=== PATIENT | female | born 1995 | race Caucasian/White ===

== ENCOUNTER → 2021-12-14 07:32 | Outpatient (BNVA) | payer BC, SELFPAY | PROVIDERS: Visit Provider Nurse Practitioner Women's Health | DX: Z32.00 Encounter for pregnancy test, result unknown (principal) | CPT/HCPCS: 81025 ==

== ENCOUNTER → 2021-12-27 09:05 | Outpatient (BNVA) | payer BC, SELFPAY | PROVIDERS: Visit Provider Obstetrics & Gynecology | DX: R93.89 Abnormal findings on diagnostic imaging of other specified body structures (principal) | CPT/HCPCS: 84702 ==

== ENCOUNTER → 2021-12-31 15:45 | Outpatient (BNVA) | payer BC, SELFPAY | PROVIDERS: Visit Provider Obstetrics & Gynecology | DX: Z32.00 Encounter for pregnancy test, result unknown (principal) | CPT/HCPCS: 84702 ==

== ENCOUNTER → 2022-01-04 16:20 | Outpatient (BNVA) | payer BC, SELFPAY | PROVIDERS: Visit Provider Obstetrics & Gynecology | DX: Z34.90 Encounter for supervision of normal pregnancy, unspecified, unspecified trimester (principal) | CPT/HCPCS: 84702 ==

== ENCOUNTER → 2022-02-01 09:04 | Outpatient (BNVA) | payer BC, SELFPAY | PROVIDERS: Visit Provider Obstetrics & Gynecology | DX: O03.9 Complete or unspecified spontaneous abortion without complication (principal) | CPT/HCPCS: 76801 ==

== ENCOUNTER 2022-02-02 00:38 | Emergency (ER) | payer BC, SELFPAY ==
[2022-02-02] VITALS (9 sets, daily range): BP systolic 103–122; BP diastolic 45–68; PULSE 69–81; RESP 14–16; TEMP 36.7; O2SAT 95–100; BMI 26.6
--- NOTE | 2022-02-02 02:00 | ED_ITS ---
HPI - General: Chief complaint: Vaginal Bleeding Stated complaint: misscariage induction, cramps Time Seen by Provider: 02/02/22 01:47 Source: patient Mode of arrival: ambulatory Limitations: no limitations History of Present Illness: 26-year-old female states she took Cytotec today for blighted ovum states that tonight over the last 4 to 5 hours she been having heavy bleedings passing multiple clots. She states the bleeding has worsened and she is now starting to feel lightheaded she is hypotensive here and pale. She denies any pain denies any vomiting or diarrhea. Associated symptoms: Deny abdominal pain, headache(s), nausea or vomiting Review of Systems Const: Denies: fever(s), chills, body aches or change in appetite Eyes: Denies: blurry vision or eye discomfort ENMT: Denies: throat pain or dental pain Card: Denies: chest pain Resp: Denies: dyspnea GI: Denies: abdominal pain, nausea, vomiting or diarrhea : Reports: vaginal bleeding Musc: Denies: neck pain or back pain Skin/Breast: Denies: rash Neuro: Denies: headache(s) Psych: Denies: depression Tristan/Lymph: Denies: easy bruising All/Imm: Denies: urticaria PFSH ED PFSH: Medical History No pertinent past medical history neghx: htn,dm,thyroid,dvt/pe PCP: Lana Stewart [place] Pilonidal cyst (~11/2012) removal Surgical History Hx of wisdom tooth extraction (~03/2018) Family History Grandfather Colon cancer Maternal--dx age 50-60's Mother Heart disease Hypertension Father Hypercholesteremia Brother Hypercholesteremia Denies family history of Ovarian cancer Diabetes Breast cancer Uterine cancer Thyroid disease Stroke Physical Exam Const: COMMON NORMALS: patient oriented x3 GENERAL APPEARANCE: ill appearing HENMT: COMMON NORMALS: normocephalic and atraumatic HEAD & SCALP: nor mocephalic and atraumatic Eye: COMMON NORMALS: Equal, round and reactive pupils present and EOMs intact bilaterally PUPIL: Yes Equal, round and reactive pupils present Neck/C-Spine: COMMON NORMALS: full ROM and supple Chest: COMMONS NORMALS: normal inspection of the chest and normal palpation of entire chest wall Resp: COMMON NORMALS: normal respiratory effort, No retractions, No use of accessory muscles and clear to auscultation bilaterally AUSCULTATION: clear to auscultation bilaterally Cardio: COMMON NORMALS: regular rate, regular rhythm and No murmurs present (Cardio) RATE: regular rate RHYTHM: regular rhythm GI: COMMON NORMALS: Normal to inspection, nondistended, normoactive bowel sounds present, Soft to palpation, non-tender and no masses PALPATION: Yes Soft to palpation : OTHER: Clots and bleeding in the vaginal vault gestational sac was stuck in the cervix I was able to remove it from the cervix and her bleeding is since slowed Extremity: COMMON NORMALS: normal to inspection and full ROM Neuro: COMMON NORMALS: patient oriented x3, moves all extremities and no focal motor deficits Psych: COMMON NORMALS: mental status grossly normal, Normal thought process present and cooperative THOUGHT PROCESS: Normal thought process present Skin: COMMON NORMALS: no rashes or lesions noted and no wounds GENERAL SKIN EXAM: no rashes or lesions noted Course Vital Signs: Vital signs: Vital Signs Temperature 98.0 F 02/02/22 00:45 Pulse Rate 75 02/02/22 03:16 Respiratory Rate 16 02/02/22 03:16 Blood Pressure 111/61 02/02/22 03:16 Pulse Oximetry 99 02/02/22 03:16 Oxygen Delivery Me thod 02/02/22 00:45 MDM - OB/Uterine Contractions Medical Decision Making Patient presents for vaginal bleeding from a miscarriage I was able to remove the gestational sacs which was stuck in her cervix her bleeding is since slowed greatly she is well-appearing here her vital signs are normal she is stable for discharge she is to follow-up with OB and return if worsening she understands agrees to plan. Lab Data 02/02/22 02:23 02/02/22 02:23 Laboratory Results WBC 13.3 10^3/uL (4.0-10.0) H 02/02/22 02:23 RBC 3.71 10^6/uL (4.1-5.3) L 02/02/22 02:23 Hgb 11.3 g/dL (11.5-15.3) L 02/02/22 02:23 Hct 33.6 % (37.0-47.0) L 02/02/22 02:23 MCV 90.6 fl (81-99) 02/02/22 02:23 MCH 30.5 pg (28.0-34.0) 02/02/22 02:23 MCHC 33.6 g/dL (30.0-36.0) 02/02/22 02: RDW 11.3 % (12.1-15.1) L 02/02/22 02:23 Plt Count 188 10^3/cmm (130-400) 02/02/22 02:23 MPV 9.6 fL (7.4-10.4) 02/02/22 02:23 Neut % (Auto) 79.4 % 02/02/22 02:23 Lymph % (Auto) 16.1 % 02/02/22 02:23 [place] % (Auto) 3.7 % 02/02/22 02: Eos % (Auto) 0.2 % 02/02/22 02:23 Baso % (Auto) 0.2 % 02/02/22 02:23 Neut # (Auto) 10.52 10^3/uL (1.8-7.7) H 02/02/22 02: Lymph # (Auto) 2.1 10^3/uL (0.8-4.8) 02/02/22 02:23 [place] # (Auto) 0.5 10^3/uL (0.2-0.9) 02/02/22 02:23 Eos # (Auto) 0.0 10^3/uL (0.0-0.8) 02/02/22 02:23 Baso # (Auto) 0.0 10^3/uL (0.0-0.1) 02/02/22 02: Nucleated RBC % (auto) 0 % 02/02/22 02: Nucleated RBCs # 0.0 /100WBC 02/02/22 02:23 Sodium 136 mmol/L (136-145) 02/02/22 02:23 Potassium 4.0 mmol/L (3.5-5.1) 02/02/22 02: Chloride 106 mmol/L (98-107) 02/02/22 02:23 Carbon Dioxide 19 mmol/L (22-29) L 02/02/22 02:23 Anion Gap 15.0 (5-19) 02/02/22 02:23 BUN 9 mg/dL (6-20) 02/02/22 02:23 Creatinine 0.6 mg/dL (0.5-0.9) 02/02/22 02:23 GFR Calculation 119.9 mL/min (90-130) 02/02/22 02:23 Glucose 111 mg/dL (65-115) 02/02/22 02:23 Calculated Osmolality 281 mOsm/kg (285-295) L 02/02/22 02:23 Calcium 8.1 mg/dL (8.5-10.5) L 02/02/22 02:23 Total Bilirubin 0.2 mg/dL (0.15-1.2) 02/02/22 02:23 AST 15 U/L (0-32) 02/02/22 02:23 ALT 10 U/L (0-33) 02/02/22 02:23 Alkaline Phosphatase 50 U/L (35-105) 02/02/22 02:23 Total Protein 5.9 g/dL (6.6-8.7) L 02/02/22 02:23 Albumin 3.5 g/dL (3.5-5.2) 02/02/22 02:23 Globulin 2.4 g/dL (1.3-4.6) 02/02/22 02:23 Ser , Semi-Qnt 1400.00 mIU/mL 02/02/22 02:23 Discharge Plan Discharge Patient Disposition: Home Clinical Impression: Miscarriage Condition: Stable Prescriptions: No Action Adult 50 Plus Probiotic 4 billion cell capsule PO prenat.vits,afsaneh,[id number]-hbill Tablet 1 tab PO DAILY povidone-iodine [Betadine Swabsticks] 10 % swab 1 applic topical ONCE Qty: 150 0RF biotin 1 mg capsule 1 mg PO DAILY misoprostol [Cytotec] 200 mcg tablet 600 mcg PO Q6H Qty: 12 0RF promethazine 25 mg tablet 25 mg PO Q6H PRN (Reason: nausea and vomiting) Qty: 30 0RF ibuprofen 600 mg tablet 600 mg PO Q6H PRN (Reason: pain) Qty: 30 0RF misoprostol [Cytotec] 200 mcg tablet 600 mcg PO Q6H Qty: 12 0RF Discharge Orders: Discharge ED (Routine); Ordered 02/02/22 Ordered By: Ivory Thibodeaux Referrals: Oumou Ott MD [Physician] - 1-3 days Discharge Diet: Advance as tolerated Discharge Activity: Resume usual activity Patient Instructions: Miscarriage (ED) Coding Level of Care Code ED Security Systems Installer for Chg Fwd Exam Comprehensive
[2022-02-02] MEDS: sodium chloride 0.9% 1,000 ML 999 ML IV ×2 (02:05→04:17)
[2022-02-02 02:31] LABS: Basophils % 0.2 %; Eosinophils % 0.2 %; Hematocrit 33.6 % (37.0-47.0); Hemoglobin 11.3 g/dL (11.5-15.3); Lymphocytes # 2.1 10^3/uL (0.8-4.8); Lymphocytes % 16.1 %; Mean Corpuscular HGB Conc 33.6 g/dL (30.0-36.0); Mean Corpuscular Hemoglobin 30.5 pg (28.0-34.0); Mean Corpuscular Volume 90.6 fl (81-99); Mean Platelet Volume 9.6 fL (7.4-10.4); Monocytes # 0.5 10^3/uL (0.2-0.9); Monocytes % 3.7 %; Neutrophils # 10.52 10^3/uL (1.8-7.7); Neutrophils % 79.4 %; Nucleated Red Blood Cells % 0 %; Platelet Count 188 10^3/cmm (130-400); Red Blood Count 3.71 10^6/uL (4.1-5.3); Red Cell Distribution Width 11.3 % (12.1-15.1); White Blood Count 13.3 10^3/uL (4.0-10.0)
[2022-02-02 02:58] LABS: Alanine Aminotransferase 10 U/L (0-33); Albumin Level 3.5 g/dL (3.5-5.2); Alkaline Phosphatase 50 U/L (35-105); Aspartate Amino Transferase 15 U/L (0-32); Blood Urea Nitrogen 9 mg/dL (6-20); Calcium 8.1 mg/dL (8.5-10.5); Carbon Dioxide 19 mmol/L (22-29); Chloride 106 mmol/L (98-107); Globulin 2.4 g/dL (1.3-4.6); Glomerular Filtration Rate 119.9 mL/min (90-130); Glucose 111 mg/dL (65-115); Osmolality Calculated 281 mOsm/kg (285-295); Sodium 136 mmol/L (136-145); Total Bilirubin 0.2 mg/dL (0.15-1.2); Total Protein 5.9 g/dL (6.6-8.7)
--- NOTE | 2022-02-02 04:00 | PC.NURSE ---
pt was d/c, IV removed, pt stated she felt dizzy and weak, pt placed into wheelchair to be taken to exit. When entering waiting room pt states she needed to use the restroom before she leaves. Pt stood from wheelchair and began to feel dizzy, pt became weak and I lowered pt to wheelchair. Pt was not responsive to verbal stimuli and had eyes closed. Pt taken back into ED 11.
[2022-02-02 04:18] LABS: Hematocrit 35.2 % (37.0-47.0); Hemoglobin 11.8 g/dL (11.5-15.3)
--- NOTE | 2022-02-02 05:30 | PC.NURSE ---
Pt was able to ambulate to bathroom, change brief, and ambulate back to room. Pt d/c, ambulated to exit
== END 2022-02-02 05:33 | disposition home or self-care (01) ==
PROVIDERS: Emergency Provider Emergency Medicine
DX: O03.9 Complete or unspecified spontaneous abortion without complication (principal)
CPT/HCPCS: 80053; 84702; 85014; 85018; 85025; 86850; 86900; 96360; 96361; 99284; J7030

== ENCOUNTER 2022-03-04 16:42 | Outpatient (CLI) | payer OTHER, BC, SELFPAY ==
--- NOTE | 2022-03-04 17:46 | XR_ITS ---
WS: [id number] XR knee RT 1-2V [id number] REASON FOR EXAM: PAIN IN RIGHT KNEE FINDINGS: The joint spaces of the right knee are intact and well preserved. No fracture or focal bone lesion is identified. No soft tissue abnormality is noted. XR/XR knee RT 1-2V [id number] IMPRESSION: No significant abnormality.
== END 2022-03-04 16:43 | disposition home or self-care (01) ==
PROVIDERS: PCP Nurse Practitioner Family; Visit Provider Nurse Practitioner Family
DX: M25.561 Pain in right knee (principal)
CPT/HCPCS: 73560

== ENCOUNTER → 2022-04-08 16:02 | Outpatient (BNVA) | payer OTHER, BC, SELFPAY | PROVIDERS: PCP Nurse Practitioner Family; Visit Provider Specialist | DX: S89.91XA Unspecified injury of right lower leg, initial encounter (principal); W19.XXXA Unspecified fall, initial encounter | CPT/HCPCS: 73560; 73565 ==

== ENCOUNTER 2022-05-08 07:34 | Outpatient (CLI) | payer OTHER, BC, SELFPAY ==
--- NOTE | 2022-05-08 08:00 | MR_ITS ---
WS: [id number] MRI RIGHT KNEE NONCONTRAST TECHNIQUE: Axial PD, coronal PD fat sat, coronal PD, sagittal PD, and sagittal PD fat-sat images obta ined. CLINICAL INFORMATION: right knee injury, right knee pain, positive Patricia's COMPARISON: None. FINDINGS: Distal quadriceps and patella tendons are intact. Normal ACL and PCL. Chronic intrasubstance signal a bnormality involving the posterior horn medial meniscus. Tiny adjacent vertically oriented meniscal t ear extending to the tibial articular surface. Normal lateral meniscus. Fibular head is normal. Medial and lateral patellar retinaculum are intact. Mild chondromalacia patella. Normal popliteal fos sa. Normal MCL and LCL. Popliteus appears intact. Small amount of patella tendon tendinopathy with ed umm in the inferior pole patella. MR/MR knee RT wo con* [id number] IMPRESSION: 1. Normal ACL and PCL. 2. No significant joint effusion. 3. Chronic intrasubstance signal abnormality involving the posterior horn medi al meniscus. Tiny vertically oriented tear posterior horn medial meniscus exten ding to the articular surface inferiorly. 4. Normal lateral meniscus. 5. Mild chondromalacia patella. 6. Small amount of patella tendon tendinopathy with edema in the inferior pole patella. Outbridge grading: grade II: blister-like swelling/fraying of articular cartila ge extending to surface
== END 2022-05-08 07:35 | disposition home or self-care (01) ==
LOC: RAD 07:38
PROVIDERS: PCP Nurse Practitioner Family; Visit Provider Specialist
DX: S83.241A Other tear of medial meniscus, current injury, right knee, initial encounter (principal); X58.XXXA Exposure to other specified factors, initial encounter
CPT/HCPCS: 73721

== ENCOUNTER → 2022-05-09 14:00 | Outpatient (BNVA) | payer BC, OTHER, SELFPAY | PROVIDERS: PCP Nurse Practitioner Family; Visit Provider Obstetrics & Gynecology | DX: N93.9 Abnormal uterine and vaginal bleeding, unspecified (principal); Z32.00 Encounter for pregnancy test, result unknown | CPT/HCPCS: 83036; 83525; 84443; 84702 ==

== ENCOUNTER → 2022-05-13 16:18 | Outpatient (BNVA) | payer BC, OTHER, SELFPAY | PROVIDERS: PCP Nurse Practitioner Family | DX: Z34.90 Encounter for supervision of normal pregnancy, unspecified, unspecified trimester (principal); N93.9 Abnormal uterine and vaginal bleeding, unspecified | CPT/HCPCS: 84702 ==

== ENCOUNTER → 2022-05-20 15:34 | Outpatient (BNVA) | payer BC, OTHER, SELFPAY | PROVIDERS: PCP Nurse Practitioner Family; Visit Provider Obstetrics & Gynecology | DX: O03.9 Complete or unspecified spontaneous abortion without complication (principal); Z3A.00 Weeks of gestation of pregnancy not specified | CPT/HCPCS: 76830 ==

== ENCOUNTER 2022-05-31 09:10 | Outpatient (CLI) | payer BC, SELFPAY ==
[2022-06-03 19:25] LABS: PTT-LA-Screen 32 sec (< OR = 40)
[2022-06-04 10:15] LABS: Anti-Nuclear Antibody Pattern Nuclear, Speckled; Anti-Nuclear Antibody Screen POSITIVE (NEGATIVE)
[2022-06-04 18:14] LABS: Insulin ( Reference Lab Test) 6.3 uIU/mL
[2022-06-05 01:19] LABS: CARDIOLIPIN AB (IGA) <2.0 APL-U/mL; CARDIOLIPIN AB (IGG) <2.0 GPL-U/mL; CARDIOLIPIN AB (IGM) <2.0 MPL-U/mL
[2022-06-05 17:58] LABS: Factor 5 Leiden Mutation NEGATIVE
[2022-06-07 20:30] LABS: Beta 2 Glycoprotein IGA <2.0 U/mL (<20.0); Beta 2 Glycoprotein IGG <2.0 U/mL (<20.0); Beta 2 Glycoprotein IGM 2.4 U/mL (<20.0)
== END 2022-05-31 09:11 | disposition home or self-care (01) ==
PROVIDERS: PCP Nurse Practitioner Family; Visit Provider Obstetrics & Gynecology
DX: D89.89 Other specified disorders involving the immune mechanism, not elsewhere classified (principal); O20.0 Threatened abortion
CPT/HCPCS: 36415; 81241; 83525; 84702; 85613; 85730; 86038; 86146; 86147

== ENCOUNTER 2022-06-17 16:13 | Outpatient (CLI) | payer BC, SELFPAY ==
[2022-06-19 11:55] LABS: COMPLEMENT COMPONENT C3C 115 mg/dL (83-193); COMPLEMENT COMPONENT C4C 21 mg/dL (15-57)
[2022-06-19 13:30] LABS: COMPLEMENT, TOTAL (CH50) >60 U/mL (31-60)
[2022-06-19 16:03] LABS: CENTROMERE B ANTIBODY <1.0 NEG AI (<1.0 NEG); JO-1 ANTIBODY <1.0 NEG AI (<1.0 NEG); RNP ANTIBODY <1.0 NEG AI (<1.0 NEG); SCL-70 ANTIBODY <1.0 NEG AI (<1.0 NEG); SJOGREN'S ANTIBODY (SS-A) <1.0 NEG AI (<1.0 NEG); SM ANTIBODY <1.0 NEG AI (<1.0 NEG); SS-B <1.0 NEG AI (<1.0 NEG)
[2022-06-19 16:29] LABS: THYROID PEROXIDASE ANTIBODIES 2 IU/mL (<9)
[2022-06-20 10:39] LABS: ANA PATTERN Nuclear, Speckled; ANA SCREEN, IFA POSITIVE (NEGATIVE); ANA TITER 1:40 titer
[2022-06-21 15:26] LABS: DNA AB (DS) CRITHIDIA,IFA NEGATIVE (NEGATIVE)
== END 2022-06-17 16:14 | disposition home or self-care (01) ==
LOC: LAB 16:18
PROVIDERS: PCP Nurse Practitioner Family; Visit Provider Obstetrics & Gynecology
DX: D89.89 Other specified disorders involving the immune mechanism, not elsewhere classified (principal)
CPT/HCPCS: 86160; 86162; 86235; 86255; 86376

== ENCOUNTER → 2022-07-10 13:22 | Outpatient (BNVA) | payer BC, SELFPAY | PROVIDERS: PCP Nurse Practitioner Family; Visit Provider Obstetrics & Gynecology | DX: N39.0 Urinary tract infection, site not specified (principal) | CPT/HCPCS: 84315; 87077; 87086; 87184 ==

== ENCOUNTER → 2022-09-11 15:00 | Outpatient (BNVA) | payer BC, SELFPAY | PROVIDERS: PCP Nurse Practitioner Family; Visit Provider Obstetrics & Gynecology | DX: N96 Recurrent pregnancy loss (principal) | CPT/HCPCS: 84702 ==

== ENCOUNTER → 2022-09-13 08:14 | Outpatient (BNVA) | payer BC, SELFPAY | PROVIDERS: PCP Nurse Practitioner Family; Visit Provider Obstetrics & Gynecology | DX: N96 Recurrent pregnancy loss (principal) | CPT/HCPCS: 84702 ==

== ENCOUNTER → 2022-09-19 09:47 | Outpatient (BNVA) | payer BC, SELFPAY | PROVIDERS: PCP Nurse Practitioner Family; Visit Provider Internal Medicine Rheumatology | DX: R76.8 Other specified abnormal immunological findings in serum (principal); N96 Recurrent pregnancy loss; M25.50 Pain in unspecified joint | CPT/HCPCS: 36415; 83520; 85613; 85730; 86200; 86431 ==

== ENCOUNTER → 2022-09-23 10:20 | Outpatient (BNVA) | payer BC, SELFPAY | PROVIDERS: PCP Nurse Practitioner Family; Visit Provider Obstetrics & Gynecology | DX: Z36.87 Encounter for antenatal screening for uncertain dates (principal) | CPT/HCPCS: 76817 ==

== ENCOUNTER → 2022-10-14 13:29 | Outpatient (BNVA) | payer BC, SELFPAY | PROVIDERS: PCP Nurse Practitioner Family; Visit Provider Obstetrics & Gynecology | DX: Z36.87 Encounter for antenatal screening for uncertain dates (principal) | CPT/HCPCS: 76801 ==

== ENCOUNTER → 2022-11-04 10:41 | Outpatient (BNVA) | payer BC, SELFPAY | PROVIDERS: PCP Nurse Practitioner Family; Visit Provider Obstetrics & Gynecology | DX: Z34.90 Encounter for supervision of normal pregnancy, unspecified, unspecified trimester (principal) | CPT/HCPCS: 80307; 84315; 85027; 86592; 86762; 86803; 86850; 86900; 87086; 87340; 87491; 87591; 87806 ==

== ENCOUNTER → 2022-11-18 08:39 | Outpatient (BNVA) | payer BC, SELFPAY | PROVIDERS: PCP Nurse Practitioner Family; Visit Provider Obstetrics & Gynecology | DX: Z34.90 Encounter for supervision of normal pregnancy, unspecified, unspecified trimester (principal) | CPT/HCPCS: 76815 ==

== ENCOUNTER → 2022-11-28 09:00 | Outpatient (BNVA) | payer BC, SELFPAY | PROVIDERS: PCP Nurse Practitioner Family; Visit Provider Nurse Practitioner Women's Health | DX: Z34.90 Encounter for supervision of normal pregnancy, unspecified, unspecified trimester (principal); Z36.9 Encounter for antenatal screening, unspecified | CPT/HCPCS: 82105; 88175 ==

== ENCOUNTER → 2022-12-30 09:44 | Outpatient (BNVA) | payer BC, SELFPAY | PROVIDERS: PCP Nurse Practitioner Family; Visit Provider Obstetrics & Gynecology | DX: Z34.90 Encounter for supervision of normal pregnancy, unspecified, unspecified trimester (principal) | CPT/HCPCS: 76805 ==

== ENCOUNTER → 2023-01-27 10:56 | Outpatient (BNVA) | payer BC, SELFPAY | PROVIDERS: PCP Nurse Practitioner Family; Visit Provider Obstetrics & Gynecology | DX: O09.899 Supervision of other high risk pregnancies, unspecified trimester (principal); Z3A.24 24 weeks gestation of pregnancy | CPT/HCPCS: 82950; 84315 ==

== ENCOUNTER → 2023-03-13 09:28 | Outpatient (BNVA) | payer BC, SELFPAY | PROVIDERS: PCP Nurse Practitioner Family; Visit Provider Obstetrics & Gynecology | DX: O09.899 Supervision of other high risk pregnancies, unspecified trimester; Z3A.30 30 weeks gestation of pregnancy | CPT/HCPCS: 84315; 85025 ==

== ENCOUNTER 2023-04-09 08:44 | Outpatient (CLI) | payer BC, SELFPAY ==
[2023-04-09] VITALS (9 sets, daily range): BP systolic 127–135; BP diastolic 66–76; PULSE 82–93; RESP 16–18; TEMP 35.1–36.9; BMI 34.3
[2023-04-09 09:44] LABS: Add Urine Microscopic? NO; Charge for UA Resulting for Rev
[2023-04-09 09:45] LABS: Basophils % 0.2 %; Eosinophils # 0.1 10^3/uL (0.0-0.8); Eosinophils % 0.8 %; Hematocrit 36.1 % (36-47); Lymphocytes # 2.4 10^3/uL (0.8-4.8); Lymphocytes % 22.6 %; Mean Corpuscular HGB Conc 34.6 g/dL (30-55); Mean Corpuscular Volume 89.6 fl (85-98); Mean Platelet Volume 9.6 fL (7.4-10.4); Monocytes # 0.6 10^3/uL (0.2-0.9); Monocytes % 5.9 %; Neutrophils # 7.24 10^3/uL (1.8-7.7); Neutrophils % 69.4 %; Nucleated Red Blood Cells % 0 %; Platelet Count 190 10^3/cmm (157-399); Red Blood Count 4.03 10^6/uL (3.85-5.65); Red Cell Distribution Width 12.6 % (12.1-15.1); White Blood Count 10.42 10^3/uL (3.29-11.43)
[2023-04-09] MEDS: NIFEdipine 10 mg Capsule PO (09:46)
[2023-04-09 09:59] LABS: Bilirubin Urine Neg (Negative); Blood Urine Neg (Negative); Glucose Urine UA Norm (Normal); Ketones Urine Negative (Negative); Leukocyte Esterase Urine Negative (Negative); Nitrate Urine Negative (Negative); Protein Urine Neg (Negative); Urine Appearance Clear (CLEAR); Urine Color Yellow (Yellow); Urobilinogen Urine Norm (Negative); pH Urine 7 (5-7)
[2023-04-09 10:14] LABS: Alanine Aminotransferase 22 U/L (0-33); Albumin Level 3.2 g/dL (3.5-5.2); Alkaline Phosphatase 120 U/L (35-105); Anion Gap 13.9 (5-19); Aspartate Amino Transferase 21 U/L (0-32); Blood Urea Nitrogen 9 mg/dL (6-20); Calcium 8.3 mg/dL (8.5-10.5); Carbon Dioxide 20 mmol/L (22-29); Chloride 107 mmol/L (98-107); Globulin 2.6 g/dL (1.3-4.6); Glomerular Filtration Rate 146.9 mL/min (90-130); Glucose 87 mg/dL (65-115); Osmolality Calculated 282 mOsm/kg (285-295); Potassium 3.9 mmol/L (3.5-5.1); Sodium 137 mmol/L (136-145); Total Bilirubin 0.2 mg/dL (0.15-1.2); Total Protein 5.8 g/dL (6.6-8.7); Uric Acid 3.5 mg/dL (2.4-5.7)
[2023-04-09 10:16] LABS: Urine Creatinine 21 mg/dL (28-217); Urine Protein Random 4 mg/dL
[2023-04-09 10:18] LABS: UPRO/UCREAT Ratio 0.19 mg/mg CR
== END 2023-04-09 11:06 | disposition home or self-care (01) ==
LOC: OPOB 08:48 → OBGYN 08:51
PROVIDERS: PCP Nurse Practitioner Family; Visit Provider Obstetrics & Gynecology
DX: O16.9 Unspecified maternal hypertension, unspecified trimester (principal); Z3A.00 Weeks of gestation of pregnancy not specified
CPT/HCPCS: 36415; 59025; 80053; 81003; 82570; 84156; 84550; 85025; 99211

== ENCOUNTER → 2023-04-21 08:08 | Outpatient (BNVA) | payer BC, SELFPAY | PROVIDERS: PCP Nurse Practitioner Family; Visit Provider Obstetrics & Gynecology | DX: O09.899 Supervision of other high risk pregnancies, unspecified trimester (principal) | CPT/HCPCS: 84315; 87081 ==

== ENCOUNTER 2023-05-01 08:40 | Outpatient (CLI) | payer BC, SELFPAY ==
[2023-05-01 08:57] VITALS: BP 161/83; PULSE 93
[2023-05-01 09:16] VITALS: BP 139/79; PULSE 85
[2023-05-01 09:22] LABS: Nitrazine Paper, PH Negative
[2023-05-01 09:26] VITALS: BP 139/79; PULSE 85; RESP 16
== END 2023-05-01 09:27 | disposition home or self-care (01) ==
LOC: OPOB 08:44 → OBGYN 08:45
PROVIDERS: Absent Provider Obstetrics & Gynecology; PCP Nurse Practitioner Family; Visit Provider Obstetrics & Gynecology
DX: O26.899 Other specified pregnancy related conditions, unspecified trimester (principal); Z3A.00 Weeks of gestation of pregnancy not specified; N89.8 Other specified noninflammatory disorders of vagina
CPT/HCPCS: 59025; 83986; 99211

== ENCOUNTER 2023-05-20 15:03 | Inpatient (IN) | payer BC, SELFPAY ==
[2023-05-20] VITALS (13 sets, daily range): BP systolic 134–148; BP diastolic 70–92; PULSE 71–98; TEMP 35.7–36.3; BMI 36.3
[2023-05-20 15:31] LABS: Basophils % 0.2 %; Eosinophils # 0.1 10^3/uL (0.0-0.8); Hematocrit 37.1 % (36-47); Lymphocytes # 2.4 10^3/uL (0.8-4.8); Lymphocytes % 24.2 %; Mean Corpuscular Hemoglobin 30.7 pg (27-33); Mean Corpuscular Volume 87.7 fl (85-98); Mean Platelet Volume 10.3 fL (7.4-10.4); Monocytes # 0.6 10^3/uL (0.2-0.9); Monocytes % 5.7 %; Neutrophils # 6.75 10^3/uL (1.8-7.7); Neutrophils % 68.1 %; Nucleated Red Blood Cells % 0 %; Platelet Count 193 10^3/cmm (157-399); Red Blood Count 4.23 10^6/uL (3.85-5.65); Red Cell Distribution Width 12.1 % (12.1-15.1); White Blood Count 9.91 10^3/uL (3.29-11.43)
[2023-05-20] MEDS: miSOPROStol 100 mcg tablet 25 MCG VAGINAL ×2 (15:48→21:07)
--- NOTE | 2023-05-20 17:17 | PM.OPHPUD ---
Labor & Delivery H&P Update Date of Procedure: May 20, 2023 Date H&P Performed: 05/19/23 H&P update information: I have reviewed H&P completed within last 30 days, I have examined patient prior to procedure and No changes to prior documentation Admission Diagnosis:
[2023-05-21] VITALS (80 sets, daily range): BP systolic 118–184; BP diastolic 58–98; PULSE 59–110; RESP 17–18; TEMP 36–36.6; O2SAT 96–97
[2023-05-21] MEDS: miSOPROStol 100 mcg tablet 25 MCG VAGINAL ×2 (01:32→08:30)
--- NOTE | 2023-05-21 08:48 | P.PN_ITS ---
Subjective 2 Subjective: Ms. Augustin is a 27 year old patient with LMP of 08/08/22, MURRAY 05/15/23, based on LMP and consistent with 6 weeks sonogram, placing her at 40-5/7 weeks today. Elective induction. Refers starting to feel some contractions Vitals/I&O/Wt Last Vital Signs Temp 96.4 F L 05/20/23 23:15 Pulse 80 05/21/23 08:36 BP 134/85 05/21/23 08:36 O2 Del Method Room Air 05/21/23 05:05 05/20/23 05/21/23 05/21/23 22:59 06:59 14:59 Intake Total 600 / 600 Balance 600 / 600 Weight last 48 hrs Weight 102.058 kg Weight 102.058 kg Physical Exam 2 Narrative: GA: Alert and oriented ?3. Lungs: Clear to auscultation bilaterally. Heart: Regular rhythm and rate. Abdomen: Gravid, full the height equals dates, nontender. PARTS CONTROL CLERK: SVE; dilation: 1 cm, effacement: 60%, station: -3, presentation: vx, membranes: IM. Extremities: no edema, no cyanosis, no calves pain. heart tracing: Basal rate: 140's bpm, Variability: moderate, Accelerations: present, Decelerations: absent, Contraction: irregular. Data 05/20/23 15:15 A&P Assessment and plan (1) Term : Ms. Augustin is a 27 year old patient with LMP of 08/08/22, MURRAY 05/15/23, based on LMP and consistent with 6 weeks sonogram, placing her at 40-4/7 weeks today. Admitted for elective induction. Misoprostol for cervical ripening given throughout the night. Recently received fourth dose of Cytotec, plan to start with low-dose oxytocin augmentation at the 4-hour adan after the Cytotec. heart tracing category 1. Anticipate vaginal delivery. Plan Continue intrapartum observation Oxytocin augmentation Attestations 2 Medical Necessity Statement*: In my professional opinion per admitting diagnosis Coding Level of Care Code Acute Code for Chg Fwd Diagnoses Term Z34.90
[2023-05-21] MEDS: fentaNYL 50 mcg/mL INJ 2mL IVP ×5 (12:37→18:13)
[2023-05-21] MEDS: dextrose 5%-lactated ringers 1,000 ML 125 ML IV ×2 (12:40→19:50)
[2023-05-21] MEDS: oxytocin 30 UNIT/500 ML BAG IV (15:00)
[2023-05-21] MEDS: ondansetron 2 mg/ML SDV 2 mL 4 MG IVP (15:22)
[2023-05-21] MEDS: lactated ringers 1,000 ML 999 ML IV ×2 (17:30→18:50)
--- NOTE | 2023-05-21 18:15 | ANES.PREANE2 ---
Pre-Anesthetic Assessment Height/Weight: Height 1.68 m Weight 102.058 kg Temp Pulse Resp BP Pulse Ox O2 Del Method 98.4 F 85 17 155/81 96 Room Air 05/22/23 01:44 05/22/23 07:19 05/21/23 18:13 05/22/23 07:19 05/21/23 18:36 05/21/23 05:05 Epidural Familial anesthetic complications: None Was Beta Sean taken within 24 hours: N/A Was Clonidine taken within 24 hours: N/A Social No alcohol and No tobacco Exam alert, oriented x 3, clear to auscultation bilaterally and regular rate & rhythm Airway Dentition: full Metabolic Morbid Obesity Anesthetic Plan ASA status: 2 Risk of > 500 ml blood loss (7ml/kg in children): Yes, adequate IV access and fluids planned Medications/Allergies Home Medications Medication Instructions Recorded Confirmed Last Taken Type biotin 1 mg capsule 1 mg PO DAILY 10/12/21 05/19/23 Unknown History lactobacillus combination no.9 4 PO 12/14/21 05/19/23 Unknown History billion cell capsule (Adult 50 Plus Probiotic) prenat.vits,afsaneh,[id number] 1 tab PO DAILY #30 tabs 06/24/22 05/19/23 05/20/23 08:00 Rx fexofenadine 60 mg tablet (Jerica 60 mg PO BID PRN ALLEGERY 09/19/22 05/19/23 Unknown History Allergy) magnesium 200 mg tablet 200 mg PO DAILY 09/24/22 05/19/23 Unknown History Allergies Allergy/AdvReac Type Severity Reaction Status Date / Time No Known Allergies Allergy Verified 05/19/23 13:15 Current Medications Generic Name Dose Route Start Last Admin Trade Name Brad PRN Reason Stop Dose Admin Fentanyl 25 - 100 mcg 05/21/23 12:21 05/21/23 18:13 Fentanyl 50 Mcg/Ml Inj 2ml IVP 100 mcg Q1H PRN Administration SEVERE PAIN Dextrose/Lactated Ringer's 1,000 mls @ 125 mls/hr 05/20/23 15:00 05/22/23 03:20 Dextrose 5%-Lactated Ringers IV 125 mls/hr .Q8H RIRI Administration Dextrose/Lactated Ringer's 1,000 mls @ 125 mls/hr 05/20/23 15:27 05/21/23 19:50 Dextrose 5%-Lactated Ringers IV 125 mls/hr .Q8H PRN Administration per label comments Oxytocin 30 unit in 500 mls @ 1 mls/hr 05/21/23 12:30 05/22/23 06:15 Pitocin IV 11 milliunit/min .Q24H RIRI 11 mls/hr Titration Protocol 1 MILLIUNIT/MIN Lactated Ringer's 1,000 mls @ 999 mls/hr 05/21/23 17:16 05/21/23 18:50 Lactated Ringers IV 999 mls/hr .Q1H1M PRN Administration See label comments Ropivacaine 100 mg in 50 mls @ 10 mls/hr 05/21/23 17:30 05/22/23 04:47 Naropin Syringe EPIDURAL 10 mls/hr .Q5H RIRI Administration Ondansetron HCl 4 mg 05/20/23 14:56 05/21/23 15:22 Ondansetron 2 Mg/Ml Sdv 2 Ml IVP 4 mg Q4H PRN Administration NAUSEA AND VOMITING PFSH Anesthesia Medical History Polyarthralgia Seasonal allergies Elevated antinuclear antibody (KIMMIE) level Pilonidal cyst (~11/2012) removal No pertinent past medical history neghx: htn,dm,thyroid,dvt/pe PCP: Lana Stewart [place] Surgical History Hx of wisdom tooth extraction (~03/2018) Family History Grandfather Colon cancer Maternal--dx age 50-60's Mother Heart disease Hypertension Father Hypercholesteremia Brother Hypercholesteremia Denies family history of Ovarian cancer Diabetes Breast cancer Uterine cancer Thyroid disease Stroke Social History Smoking and tobacco/nicotine status: never used tobacco/nicotine Alcohol intake: never Female Reproductive History : 3 Data Anesthesia 05/20/23 15:15 Short CBC 05/20/23 Range/Units 15:15 WBC 9.91 (3.29-11.43) 10^3/uL Hgb 13.00 (11.27-16.99) g/dL Hct 37.1 (36-47) % MCV 87.7 (85-98) fl Plt Count 193 (157-399) 10^3/cmm Neut % (Auto) 68.1 % Neut # (Auto) 6.75 (1.8-7.7) 10^3/uL Blood Bank 05/20/23 15:15 Blood Type A Positive Rho(D) Type Rh positive Antibody Screen Negative Cardiac Studies: No Data to Display
[2023-05-21] MEDS: ROPivacaine syringe 100 MG/50 ML SYRINGE 10 MG EPIDURAL ×2 (18:40→22:20)
--- NOTE | 2023-05-21 18:50 | ANES.PROC ---
Anesthesia Procedures Procedure/Date: 05/22/23 Epidural: Time Out Performed: Yes Consents Signed: Procedure Consent Consent: requested by attending/covering physician, from patient, from other, risks and benefits reviewed and patient agrees to proceed Lumbar Level: L2-L3 Epidural position: sitting Epidural procedure: sterile prep of area, 1% lidocaine to numb the area, 18 g needle, negative for paresthesia passed, neg for paresthesia, test dose given, 1.5% xylocaine 1:200k epi (5), 0.2% Ropivacaine bolus ml (5), placed PCEA, no systemic response, sterile dressing applied, L.U.D. no apparent complications and 0.2% Ropiavacaine @ mls/hr (10) Additional Comments: Failed attempt at L4-4, patient states she has a little bit of scoliosis, successful SUREKHA at L2/3, but when threading catheter, blood returning, pulled catheter to appropriate depth and blood still aspirating. Removed catheter attempted again at L2/3, SUREKHA at 6 cm, threaded to 12 cm. Patient reported pain of contraction decreased from 6/10 to 2/10
[2023-05-22] VITALS (78 sets, daily range): BP systolic 117–180; BP diastolic 60–91; PULSE 59–108; RESP 16–17; TEMP 36.3–37.6; O2SAT 97–98
[2023-05-22] MEDS: ROPivacaine syringe 100 MG/50 ML SYRINGE 10 MG EPIDURAL ×6 (02:20→15:03)
[2023-05-22] MEDS: dextrose 5%-lactated ringers 1,000 ML 125 ML IV ×2 (03:20→14:47)
--- NOTE | 2023-05-22 05:36 | ANES.PROC ---
Anesthesia Procedures Procedure/Date: 05/22/23 Other Information: called to patients room by RN, pt c/o of hot spot on left side of back and abdomen with contractions. 100mcg of fentanyl via epidural given. Pt reporting improvement in discomfort.
[2023-05-22] MEDS: ampicillin 2,000 MG in sodium chloride 0.9% (plus) 50 ML 100 MG IV (12:28)
[2023-05-22] MEDS: acetaminophen 325 mg Tablet 650 MG PO (14:47)
[2023-05-22] MEDS: miSOPROStol 200 mcg Tablet 800 MCG PR (16:45)
[2023-05-22] MEDS: tranexamic acid 1,000 MG/100 ML PREMIX 600 MG IV (16:51)
[2023-05-22] MEDS: oxytocin 30 UNIT/500 ML BAG 600 UNIT IV (16:57)
--- NOTE | 2023-05-22 17:03 | PM.OP ---
Operative Report Date of procedure: May 22, 2023 Pre-op diagnosis: Term Post-op diagnosis: Term delivered Procedure done: Spontaneous vaginal delivery Surgeon: Skyler Corrigan MD Estimated blood loss (mL): 800 Complications: hemorrhage Procedure: The patient was noted to be complete and pushing, so was placed in the dorsal lithotomy position, prepped and draped in the usual sterile fashion for a vaginal delivery. Pt. Noted to have epidural anesthesia. At [] the patient delivered a viable female at 41 weeks infant weighing [] g with scores of 6 and 6 at one and five minutes, respectively. The vertex was delivered spontaneously over intact perineum. The patient was asked to push and the head delivered spontaneously in the SALVATORE position, over an intact perineum. A nuchal cord was checked and none noted. The anterior shoulder delivered easily and the posterior shoulder followed. The remainder of the infant was easily delivered and the oropharynx and nasopharynx was bulb suctioned. The was noted to have spontaneous cry and spontaneous movement of all four extremities. The cord was clamped x 2 and cut and noted to have 2 arteries and one vein. The was passed to the warmer where nursing/NICU personnel were in attendance. The placenta delivered intact spontaneously and the uterus was explored. 20 units of Pitocin was placed in the IV bag to firm the uterus. Examination of the cervix and vaginal vault did not reveal any lacerations. She continue with bleeding despite fundal massage, Misorostol 800 mcg rectally given then follwed with TXA IV. Bleeding brought under control. Examination of the perineum showed no lacerations. The vaginal pack was then removed. The patient tolerated this procedure well, and recovered in L&D with her [or note if infant taken to NICU]. All sponge and needle counts were correct.
[2023-05-22] MEDS: oxyCODONE-APAP 5-325 mg Tablet PO ×2 (17:44→18:25)
[2023-05-22] MEDS: docusate sodium 100 mg Capsule PO (17:45)
[2023-05-22] MEDS: benzocaine-menthol 78 gm Canister 1 SPRAY TOPICAL (17:45)
[2023-05-22] MEDS: lanolin oint 7 gm 1 APPLIC TOPICAL (17:45)
[2023-05-22] MEDS: ampicillin 1,000 MG in sodium chloride 0.9% (plus) 50 ML 100 MG IV (18:06)
[2023-05-23] VITALS (7 sets, daily range): BP systolic 131–135; BP diastolic 78–86; PULSE 74–88; RESP 16–17; TEMP 36.6–36.7; O2SAT 97–99
[2023-05-23] MEDS: oxyCODONE-APAP 5-325 mg Tablet PO ×2 (00:25→07:11)
[2023-05-23 04:48] LABS: Hematocrit 27.4 % (36-47); Mean Corpuscular Hemoglobin 31.1 pg (27-33); Mean Corpuscular Volume 88.7 fl (85-98); Mean Platelet Volume 9.9 fL (7.4-10.4); Platelet Count 152 10^3/cmm (157-399); Red Blood Count 3.09 10^6/uL (3.85-5.65); Red Cell Distribution Width 12.3 % (12.1-15.1); White Blood Count 22.84 10^3/uL (3.29-11.43)
--- NOTE | 2023-05-23 08:12 | PM.OBGYDC ---
Discharge Providers LUMITE INJECTOR Date of Admission: 05/20/23 15:03 Date of Discharge: 05/23/23 Attending Provider at Admission: Skyler Corrigan MD Attending Provider at Discharge: Skyler Corrigan MD Primary Care Provider: Lana Stewart APN Diagnoses at Discharge Discharge Diagnosis (1) Term : Status: Acute Reason for Visit Reason for Visit: INDUCTION OF LABOR FOR POST DATES Hospital Course Hospital Course Ms. Augustin is a 27 year old patient with LMP of 08/08/22, MURRAY 05/15/23, based on LMP and consistent with 6 weeks sonogram, placing her at 41 weeks. Was admitted for induction, misoprostol vaginally was given follow-up with oxytocin augmentation. She progressed to have spontaneous vaginal delivery, complicated by hemorrhage with no lacerations. She delivered a term female , with terminal meconium, with a birthweight of 4300 g. was shortly taken to the nursery. This AM the infant is being transferred to higher care echelon. observation has been uneventful. She is afebrile and hemodynamically stable, tolerating diet well, pain under control. Patient requested to be discharged before 24 hours observation so she can be with her infant. She was counseled regarding pelvic rest for 6 weeks (no sex, no tampons, no vaginal douches). Return to the emergency room if any fever, increased bleeding or pain. Information Peripartum Data: Infant Delivery Method: Vaginal Physical Exam Narrative: GA: Alert and oriented ?3. HEENT: WNL. Heart: Regular rate and rhythm. Lungs: Clear to auscultation bilaterally. Abdomen: Bowel sounds present, nontender, minimal tenderness, incision clean and dry, no redness, pain or edema. HEALTH IT SPECIALIST: No bleeding. Extremities: No edema, no cyanosis, no calves pain. Urinary Catheter Management: Christianson: Cath Placed During This Visit: yes, but has since been removed by the nurse Reason for Continuing Indwelling Catheter: Decision to DC Catheter Urinary Catheter Date of Insertion: 05/21/23 Urinary Catheter Time of Insertion: 19:25 Date Urinary Catheter Removed: 05/22/23 Time Urinary Catheter Discontinued: 15:35 History History History 3 Term 0 0 Miscarriages/Ectopic 2 Living Children 0 Discharge Data Studies Completed and Pending Laboratory Results WBC 22.84 10^3/uL (3.29-11.43) H 05/23/23 04:40 RBC 3.09 10^6/uL (3.85-5.65) L 05/23/23 04:40 Hgb 9.60 g/dL (11.27-16.99) L 05/23/23 04:40 Hct 27.4 % (36-47) L 05/23/23 04:40 MCV 88.7 fl (85-98) 05/23/23 04:40 MCH 31.1 pg (27-33) 05/23/23 04:40 MCHC 35.0 g/dL (30-55) 05/23/23 04:40 RDW 12.3 % (12.1-15.1) 05/23/23 04:40 Plt Count 152 10^3/cmm (157-399) L 05/23/23 04:40 MPV 9.9 fL (7.4-10.4) 05/23/23 04:40 Neut % (Auto) 68.1 % 05/20/23 15:15 Lymph % (Auto) 24.2 % 05/20/23 15:15 [place] % (Auto) 5.7 % 05/20/23 15:15 Eos % (Auto) 1.0 % 05/20/23 15:15 Baso % (Auto) 0.2 % 05/20/23 15:15 Neut # (Auto) 6.75 10^3/uL (1.8-7.7) 05/20/23 15:15 Lymph # (Auto) 2.4 10^3/uL (0.8-4.8) 05/20/23 15:15 [place] # (Auto) 0.6 10^3/uL (0.2-0.9) 05/20/23 15:15 Eos # (Auto) 0.1 10^3/uL (0.0-0.8) 05/20/23 15:15 Baso # (Auto) 0.0 10^3/uL (0.0-0.1) 05/20/23 15:15 Nucleated RBC % (auto) 0 % 05/20/23 15:15 Nucleated RBCs # 0.0 /100WBC 05/20/23 15:15 Blood Type A Positive 05/20/23 15:15 Rho(D) Type Rh positive 05/20/23 15:15 Antibody Screen Negative 05/20/23 15:15 Vitals Last Vital Signs Temp 98.0 F 05/23/23 07:13 Pulse 88 05/23/23 07:13 Resp 16 05/23/23 07:13 BP 132/82 05/23/23 07:13 Pulse Ox 97 05/23/23 07:13 O2 Del Method Room Air 05/23/23 07:13 Results Labs OB ([facility]): Obstetrics US 11/18/22 Blood Type A Positive 05/20/23 Antibody Screen Negative 05/20/23 Hct 27.4 % (36-47) L 05/23/23 Hgb 9.60 g/dL (11.27-16.99) L 05/23/23 Rho(D) Type Rh positive 05/20/23 Plt Count 152 10^3/cmm (157-399) L 05/23/23 Hep Bs Antigen Non-reactive (Nonreactive) 11/04/22 Hepatitis C Antibody Non-reactive (Nonreactive) 11/04/22 Rubella IgG Antibody 153.5 IU/mL (0.0-10.0) H 11/04/22 RPR Nonreactive (Nonreactive) 11/04/22 HIV 1&2 Ab & HIV 1 Ag Non-reactive (Non-Reactiv) 11/04/22 TSH 2.50 uIU/mL (0.27-4.20) 05/09/22 C.trachomatis RNA (TMA) Not detected (NOT DETECTED) 11/04/22 N.gonorrhoeae RNA (TMA) Not detected (NOT DETECTED) 11/04/22 T. vaginalis Amp RNA Not detected (NOT DETECTED) 11/04/22 Chlamydia/GC Comment See note 11/04/22 Cystic Fibrosis Screen Negative 11/04/22 Gest Glucose Tolerance 101 mg/dL (70-139) 01/27/23 Hemoglobin A1c 5.0 % (4.0-6.0) 05/09/22 Uric Acid 3.5 mg/dL (2.4-5.7) 04/09/23 Ser , Semi-Qnt 8073.00 mIU/mL 09/13/22 HCG, Qual Positive (Negative) H 12/14/21 Urine Opiates Screen Negative ng/mL (Negative) 11/04/22 Ur Barbiturates Screen Negative ng/mL (Negative) 11/04/22 Ur Phencyclidine Scrn Negative ng/mL (Negative) 11/04/22 Ur Amphetamines Screen Negative ng/mL (Negative) 11/04/22 U Benzodiazepines Scrn Negative ng/mL (Negative) 11/04/22 Urine Cocaine Screen Negative ng/mL (Negative) 11/04/22 U Marijuana (THC) Screen Negative ng/mL (Negative) 11/04/22 Micro Urine Specimen 11/04/22 Pap Smear Interpret See note 11/28/22 Discharge Plan Discharge Patient Disposition: Home Condition: Stable Prescriptions: New ferrous sulfate [Iron (ferrous sulfate)] 325 mg (65 mg iron) tablet 325 mg PO BID Qty: 60 0RF ibuprofen 800 mg tablet 800 mg PO TID PRN (Reason: pain) Qty: 60 0RF acetaminophen 325 mg capsule 325 mg PO Q4H PRN (Reason: fever or pain) Qty: 60 0RF docusate sodium [Colace] 100 mg capsule 100 mg PO BID Qty: 60 0RF Continued Adult 50 Plus Probiotic 4 billion cell capsule PO povidone-iodine [Betadine Swabsticks] 10 % swab 1 applic topical ONCE Qty: 150 0RF biotin 1 mg capsule 1 mg PO DAILY fexofenadine [Jerica Allergy] 60 mg tablet 60 mg PO BID PRN (Reason: ALLEGERY) magnesium 200 mg tablet 200 mg PO DAILY prenat.vits,afsaneh,vpv-siqu-metlp Tablet 1 tab PO DAILY Qty: 30 12RF Discharge Orders: Discharge Order (Routine); Ordered 05/23/23 Ordered By: Skyler Corrigan Referrals: Skyler Corrigan MD [Family Provider] - Discharge Diet: Usual diet Discharge Activity: Limit activity as instructed Patient Instructions: Depression (DC), Preeclampsia During (DC), Opioid Safety (DC), Hemorrhage (DC), OB Discharge Report, OB Food/Drug Interaction Guide, Opioid Safety, OB Home Care, Abnormal Bleeding Activity Restrictions/Additional Instructions: 1. Please call [facility] on next working day to make your appointment in 6 weeks. 2. Please stay home until you come back to the clinic on first post-hospatilization check up. 3. Please follow instructions on your medications CAREFULLY. 4. If you have abdominal incision, do not cover it unless dressing is necessary because of drainage. OK to shower, but avoid bath. Leave steri-strips until they fall off. If they are still on one week after surgery, you may remove them. 5. If you had vaginal surgery or vaginal repair, Dr. Corrigan may instruct you to take SITZ bath. 6. Yellow, blood tinged odorous vaginal discharge is usually normal after hysterectomy or vaginal surgeries. 7. No SEXUAL INTERCOURSE, tampons, or douches until you are completely released from the post-operative care. 8. Avoid constipation by eating right and maybe using some Metamucil or Milk of Magnesia. 9. All prescription refills are given during the working hours. Please do no wait till it runs out. Call the clinic at [phone] before your medication runs out. The clinic will get in touch with your doctor to prescribe medications if necessary. 10. Please remain within 40 mile radius from our hospital because emergencies do happen now and then during the post-operative period. 11. If you have stairs at home, take one step at a time slowly and minimize the number of trips. It helps to stay in one floor for the next few days. No lifting except what you can lift by one hand until you are released from the post-operative care. 12. Driving is discouraged until you are well healed. It may be 3-4 weeks before you feel strong enough to drive. You should be able to turn and look through the rear window without pain and you should be able to push the brake pedal very hard without pain before you drive. No fast rules, but SAFETY should be your primary concern. DO NOT drive if you are on sedating medications such as narcotics. 13. Call the clinic (during working hours) to make urgent appointment or go to the Emergency room, if any of the following occurs: i. Vaginal bleeding becomes heavy, more than a period. ii. Incision becomes red and sore, or drains pus. iii. Your TEMPERATURE is over 100.4F or you have chill. iv. IV site becomes red and swollen (a little ``knot?? is usually OK) v. Persistent nausea and vomiting vi. Persistent constipation or diarrhea vii. Rash or allergic reaction to medications. Discharge Attestations LUMITE INJECTOR Time Spent in Discharge Care*: greater than 30 min Coding Level of Care Code Acute Code for Chg Fwd Diagnoses Term Z34.90
--- NOTE | 2023-05-23 08:28 | ANE.PACU2 ---
Inpatient post-anesthesia follow up: Airway intact: Yes Vital signs: Temperature 98.0 F Pulse Rate 88 Respiratory Rate 16 Blood Pressure 132/82 Pulse Oximetry 97 Oxygen Delivery Me thod Room Air Oxygen Flow Rate Fraction of Inspir ed Oxygen Hydration adequate: Yes Nausea and vomiting: Yes Pain level: 1 Mental status: Baseline Epidural Start/End: Epidural Start Date: 05/21/23 Epidural Start Time: 18:20 Epidural End Date: 05/22/23 Epidural End Time: 19:10
--- NOTE | 2023-05-23 10:06 | PC.NURSE ---
lani assumed care at 0858, report given at bedside to Rosa BOWLING.
== END 2023-05-23 11:06 | disposition home or self-care (01) | DRG 806 ==
LOC: OPOB 15:05 → OBGYN 15:05
PROVIDERS: Absent Provider Obstetrics & Gynecology; Admitting Provider Obstetrics & Gynecology; Family Provider Obstetrics & Gynecology; PCP Nurse Practitioner Family; Visit Provider Obstetrics & Gynecology
DX: O48.0 Post-term pregnancy (principal); O72.1 Other immediate postpartum hemorrhage; Z37.0 Single live birth; Z3A.41 41 weeks gestation of pregnancy
CPT/HCPCS: 36415; 51702; 59025; 59409; 85025; 85027; 86850; 86900; 96374; 96376; 99211; J0290; J2405; J2590; J2795; J3010; J7120; J7121

== ENCOUNTER → 2023-08-11 11:48 | Outpatient (BNVA) | payer BC, SELFPAY | PROVIDERS: Family Provider Obstetrics & Gynecology; PCP Nurse Practitioner Family; Visit Provider Obstetrics & Gynecology | DX: Z30.011 Encounter for initial prescription of contraceptive pills (principal); Z39.2 Encounter for routine postpartum follow-up | CPT/HCPCS: 84702 ==

== ENCOUNTER → 2023-09-19 07:52 | Outpatient (BNVA) | payer BC, SELFPAY | PROVIDERS: Family Provider Obstetrics & Gynecology; PCP Nurse Practitioner Family; Visit Provider Nurse Practitioner Women's Health | DX: N92.6 Irregular menstruation, unspecified (principal); O20.0 Threatened abortion | CPT/HCPCS: 81025; 84702; 85025 ==

== ENCOUNTER → 2023-09-22 10:05 | Outpatient (BNVA) | payer BC, SELFPAY | PROVIDERS: Family Provider Obstetrics & Gynecology; PCP Nurse Practitioner Family; Visit Provider Nurse Practitioner Women's Health | DX: Z34.90 Encounter for supervision of normal pregnancy, unspecified, unspecified trimester (principal) | CPT/HCPCS: 84702 ==

== ENCOUNTER → 2023-09-24 14:28 | Outpatient (BNVA) | payer BC, SELFPAY | PROVIDERS: Family Provider Obstetrics & Gynecology; PCP Nurse Practitioner Family; Visit Provider Nurse Practitioner Women's Health | DX: Z34.91 Encounter for supervision of normal pregnancy, unspecified, first trimester (principal); Z3A.08 8 weeks gestation of pregnancy; O20.8 Other hemorrhage in early pregnancy | CPT/HCPCS: 76801 ==

== ENCOUNTER → 2023-10-10 13:12 | Outpatient (BNVA) | payer BC, SELFPAY | PROVIDERS: Family Provider Obstetrics & Gynecology; PCP Nurse Practitioner Family; Visit Provider Nurse Practitioner Women's Health | DX: Z34.90 Encounter for supervision of normal pregnancy, unspecified, unspecified trimester (principal) | CPT/HCPCS: 80307; 84315; 85025; 86592; 86762; 86803; 86850; 86900; 87086; 87340; 87806 ==

== ENCOUNTER → 2023-10-23 10:37 | Outpatient (BNVA) | payer BC, SELFPAY | PROVIDERS: Family Provider Obstetrics & Gynecology; PCP Nurse Practitioner Family; Visit Provider Obstetrics & Gynecology | DX: Z36.87 Encounter for antenatal screening for uncertain dates (principal); Z3A.13 13 weeks gestation of pregnancy | CPT/HCPCS: 76801; 84315; 87491; 87591 ==

== ENCOUNTER → 2023-12-15 14:25 | Outpatient (BNVA) | payer BC, SELFPAY | PROVIDERS: Family Provider Obstetrics & Gynecology; PCP Nurse Practitioner Family; Visit Provider Obstetrics & Gynecology | DX: Z36.2 Encounter for other antenatal screening follow-up (principal); Z3A.21 21 weeks gestation of pregnancy | CPT/HCPCS: 76805 ==

== ENCOUNTER → 2024-01-12 11:44 | Outpatient (BNVA) | payer BC, SELFPAY | PROVIDERS: Family Provider Obstetrics & Gynecology; PCP Nurse Practitioner Family; Visit Provider Obstetrics & Gynecology | DX: Z34.80 Encounter for supervision of other normal pregnancy, unspecified trimester (principal); O36.62X0 Maternal care for excessive fetal growth, second trimester, not applicable or unspecified | CPT/HCPCS: 82950; 84315 ==

== ENCOUNTER → 2024-02-09 11:12 | Outpatient (BNVA) | payer BC, SELFPAY | PROVIDERS: Family Provider Obstetrics & Gynecology; PCP Nurse Practitioner Family; Visit Provider Obstetrics & Gynecology | DX: O36.62X0 Maternal care for excessive fetal growth, second trimester, not applicable or unspecified (principal); Z3A.28 28 weeks gestation of pregnancy | CPT/HCPCS: 84315; 85025 ==

== ENCOUNTER → 2024-03-22 08:34 | Outpatient (BNVA) | payer BC, SELFPAY | PROVIDERS: Family Provider Obstetrics & Gynecology; PCP Nurse Practitioner Family; Visit Provider Obstetrics & Gynecology | DX: Z34.83 Encounter for supervision of other normal pregnancy, third trimester (principal) | CPT/HCPCS: 84315 ==

== ENCOUNTER → 2024-04-05 08:01 | Outpatient (BNVA) | payer BC, SELFPAY | PROVIDERS: Family Provider Obstetrics & Gynecology; PCP Nurse Practitioner Family; Visit Provider Obstetrics & Gynecology | DX: Z34.83 Encounter for supervision of other normal pregnancy, third trimester (principal); Z3A.39 39 weeks gestation of pregnancy; R93.89 Abnormal findings on diagnostic imaging of other specified body structures | CPT/HCPCS: 76816; 84315; 87081 ==

== ENCOUNTER → 2024-04-12 10:21 | Outpatient (BNVA) | payer BC, SELFPAY | PROVIDERS: Family Provider Obstetrics & Gynecology; PCP Nurse Practitioner Family; Visit Provider Obstetrics & Gynecology | DX: Z34.80 Encounter for supervision of other normal pregnancy, unspecified trimester (principal) | CPT/HCPCS: 84315 ==

== ENCOUNTER 2024-04-13 10:47 | Outpatient (CLI) | payer BC, SELFPAY ==
[2024-04-13 10:47] VITALS: BMI 35.4
[2024-04-13 11:00] VITALS: BP 112/73; PULSE 101
[2024-04-13 11:21] VITALS: BP 113/66; PULSE 96
[2024-04-13 11:41] VITALS: BP 118/77; PULSE 96
[2024-04-13 12:01] VITALS: BP 128/73; PULSE 81
[2024-04-13 12:20] LABS: Add Urine Microscopic? NO
[2024-04-13 12:21] VITALS: BP 140/93; PULSE 94
[2024-04-13 12:32] LABS: Bilirubin Urine Negative (Negative); Blood Urine Negative (Negative); Glucose Urine UA Negative (Normal); Ketones Urine Negative (Negative); Leukocyte Esterase Urine Negative (Negative); Nitrate Urine Negative (Negative); Protein Urine Negative (Negative); Specific Gravity, Urine 1.014 (1.005-1.030); Urine Appearance Clear (CLEAR); Urine Color Yellow (Yellow); Urobilinogen Urine 0.2 mg/dL (Negative)
[2024-04-13 12:41] VITALS: BP 129/79; PULSE 96
[2024-04-13 12:54] LABS: Add Urine Culture? No; Charge for UA Resulting for Rev
== END 2024-04-13 12:52 | disposition home or self-care (01) ==
LOC: OPOB 10:55 → OBGYN 10:56
PROVIDERS: Family Provider Obstetrics & Gynecology; PCP Nurse Practitioner Family; Visit Provider Obstetrics & Gynecology
DX: O16.9 Unspecified maternal hypertension, unspecified trimester (principal); Z3A.00 Weeks of gestation of pregnancy not specified
CPT/HCPCS: 59025; 81003; 99211

== ENCOUNTER → 2024-04-19 08:13 | Outpatient (BNVA) | payer BC, SELFPAY | PROVIDERS: Family Provider Obstetrics & Gynecology; PCP Nurse Practitioner Family; Visit Provider Obstetrics & Gynecology | DX: Z36.88 Encounter for antenatal screening for fetal macrosomia (principal) | CPT/HCPCS: 76816 ==

== ENCOUNTER 2024-04-19 10:47 | Outpatient (CLI) | payer BC, SELFPAY ==
[2024-04-19] VITALS (12 sets, daily range): BP systolic 82–148; BP diastolic 43–84; PULSE 95–115; RESP 16; BMI 35.2
[2024-04-19 12:06] LABS: Basophils % 0.1 %; Hematocrit 39.1 % (36-47); Lymphocytes # 1.2 10^3/uL (0.8-4.8); Lymphocytes % 16.6 %; Mean Corpuscular HGB Conc 33.5 g/dL (30-55); Mean Corpuscular Hemoglobin 29.3 pg (27-33); Mean Corpuscular Volume 87.5 fl (85-98); Mean Platelet Volume 10.3 fL (7.4-10.4); Monocytes # 0.3 10^3/uL (0.2-0.9); Monocytes % 4.5 %; Neutrophils % 78.1 %; Nucleated Red Blood Cells % 0 %; Platelet Count 154 10^3/cmm (157-399); Red Blood Count 4.47 10^6/uL (3.85-5.65); Red Cell Distribution Width 12.8 % (12.1-15.1); White Blood Count 6.92 10^3/uL (3.29-11.43)
[2024-04-19] MEDS: lactated ringers 1,000 ML 999 ML IV (12:16)
[2024-04-19 12:41] LABS: Alanine Aminotransferase 16 U/L (0-33); Albumin Level 3.1 g/dL (3.5-5.2); Alkaline Phosphatase 175 U/L (35-105); Anion Gap 14.6 (5-19); Aspartate Amino Transferase 26 U/L (0-32); Blood Urea Nitrogen 10 mg/dL (6-20); Calcium 8.6 mg/dL (8.5-10.5); Carbon Dioxide 18 mmol/L (22-29); Chloride 105 mmol/L (98-107); Creatinine Clr Calc Pharmacy 140.6511; Globulin 2.8 g/dL (1.3-4.6); Glomerular Filtration Rate 98.9 mL/min (90-130); Glucose 100 mg/dL (65-115); Osmolality Calculated 277 mOsm/kg (285-295); Potassium 3.6 mmol/L (3.5-5.1); Sodium 134 mmol/L (136-145); Total Bilirubin 0.2 mg/dL (0.15-1.2); Total Protein 5.9 g/dL (6.6-8.7)
--- NOTE | 2024-04-19 13:39 | P.TNLD_ITS ---
OB L&D Triage Visit Information: Date of evaluation: 04/19/24 Comments/Additional reason(s) for visit: 28-year-old female G4, P1 at 38 weeks [facility] with MURRAY 05/02/2024. Patient was seen in labor and delivery triage with complaints of increased contractions onset this morning. Patient also complains of nausea with 1 episode of vomiting. She denies leakage of fluid or vaginal bleeding. She admits to good movement. patient's records reviewed. EFM?category 1 with irregular contractions. Cervix?1/75%/-3 vertex unchanged after several hours of observation. Lab?CBC, CMP?unremarkable Evaluation: Baseline heart rate: 130 Variability: Moderate (11-25) monitor accelerations: Present 15x15 monitor decelerations: None Cervical dilation (cm): 1 Cervical effacement (%): 75 station: -3 Laboratory results: Laboratory Tests 04/19/24 11:45 WBC 6.92 RBC 4.47 Hgb 13.10 Hct 39.1 MCV 87.5 MCH 29.3 MCHC 33.5 RDW 12.8 Plt Count 154 L MPV 10.3 Neut % (Auto) 78.1 Lymph % (Auto) 16.6 [place] % (Auto) 4.5 Eos % (Auto) 0.0 Baso % (Auto) 0.1 Neut # (Auto) 5.40 Lymph # (Auto) 1.2 [place] # (Auto) 0.3 Eos # (Auto) 0.0 Baso # (Auto) 0.0 Nucleated RBC % (a uto) 0 Nucleated RBCs # 0.0 Sodium 134 L Potassium 3.6 Chloride 105 Carbon Dioxide 18 L Anion Gap 14.6 BUN 10 Creatinine 0.7 GFR Calculation 98.9 Glucose 100 Calculated Osmolal ity 277 L Calcium 8.6 Total Bilirubin 0.2 AST 26 ALT 16 Alkaline Phosphata se 175 H Total Protein 5.9 L Albumin 3.1 L Globulin 2.8 Vital signs: Vital Signs - 24 hr 04/19/24 10:59 04/19/24 11:01 04/19/24 11:01 Pulse Rate 112 H Respiratory Rate 16 16 Blood Pressure 125/80 04/19/24 11:15 04/19/24 11:30 04/19/24 11:36 Pulse Rate 112 H 115 H 100 Respiratory Rate Blood Pressure 148/84 115/69 82/43 04/19/24 12:13 04/19/24 12:28 04/19/24 12:43 Pulse Rate 95 102 H 106 H Respiratory Rate Blood Pressure 111/68 118/71 119/75 04/19/24 12:58 04/19/24 13:14 04/19/24 13:28 Pulse Rate 102 H 104 H 101 H Respiratory Rate Blood Pressure 128/77 126/71 118/66 Care MURRAY Calculator Estimated Delivery Date Method Current WG Current Estimate 05/02/24 Ultrasound #1 38w 1d Other Estimates 04/05/24 LMP (Uncertain) 42w 0d Specific Issues/Plans * UNKNOWN LMP-- 8wk sono dates the * subchor bleed-- at 8 wks; repeat at 12wk * HX PP HEMORRHAGE--immed after placenta; long induction * LGA? - last baby 9#, was able to deliver vaginally Final Diagnosis Final Diagnosis (1) 38 weeks gestation of : Status: Acute Code(s): Z3A.38 - 38 weeks gestation of (2) Irregular contractions: Plan: Will DC to home, with labor precautions reviewed as well as leakage of fluid or vaginal bleeding. Patient instructed to return to labor and delivery with any concerns or labor. Status: Acute Code(s): O47.9 - False labor, unspecified (3) Abnormal glucose tolerance test during , antepartum: Status: Acute Code(s): O99.810 - Abnormal glucose complicating (4) Sterilization consult: Status: Acute Code(s): Z30.09 - Encounter for other general counseling and advice on contraception (5) macrosomia during in second trimester: Status: Acute Qualifiers: Fetus number: single or unspecified fetus Qualified Code(s): O36.62X0 - Maternal care for excessive growth, second trimester, not applicable or unspecified Code(s): O36.62X0 - Maternal care for excessive growth, second trimester, not applicable or unspecified (6) Subchorionic hematoma, antepartum: Status: Acute Qualifiers: Fetus number: single or unspecified fetus Qualified Code(s): O41.8X90 - Other specified disorders of amniotic fluid and membranes, unspecified trimester, not applicable or unspecified; O46.8X9 - Other antepartum hemorrhage, unspecified trimester Code(s): O41.8X90 - Other specified disorders of amniotic fluid and membranes, unspecified trimester, not applicable or unspecified; O46.8X9 - Other antepartum hemorrhage, unspecified trimester Coding Level of Care Code Acute Code for Chg Fwd Diagnoses 38 weeks gestation of Z3A.38 Irregular contractions O47.9 Abnormal glucose tolerance test during , antepartum O99.810 Sterilization consult Z30.09 macrosomia during in second trimester, single or unspecified fetus O36.62X0 Fetus number: single or unspecified fetus Subchorionic hematoma, antepartum, single or unspecified fetus O41.8X90; O46.8X9 Fetus number: single or unspecified fetus
[2024-04-19] MEDS: famotidine 20 mg Tablet 40 MG PO (13:52)
== END 2024-04-19 13:59 | disposition home or self-care (01) ==
LOC: OPOB 10:50 → OBGYN 10:50
PROVIDERS: Family Provider Obstetrics & Gynecology; PCP Nurse Practitioner Family; Visit Provider Obstetrics & Gynecology
DX: O47.9 False labor, unspecified (principal); Z3A.38 38 weeks gestation of pregnancy; O99.810 Abnormal glucose complicating pregnancy; Z30.09 Encounter for other general counseling and advice on contraception; O36.62X0 Maternal care for excessive fetal growth, second trimester, not applicable or unspecified; O41.8X90 Other specified disorders of amniotic fluid and membranes, unspecified trimester, not applicable or unspecified; O46.8X9 Other antepartum hemorrhage, unspecified trimester
CPT/HCPCS: 59025; 80053; 84315; 85025; 99211; J7120

== ENCOUNTER 2024-04-25 09:40 | Inpatient (IN) | payer BC, SELFPAY ==
[2024-04-25] VITALS (40 sets, daily range): BP systolic 107–149; BP diastolic 56–89; PULSE 63–99; RESP 16–181; TEMP 36.5–37.1; O2SAT 98–100; BMI 37.5
[2024-04-25 09:48] LABS: Basophils % 0.4 %; Eosinophils # 0.1 10^3/uL (0.0-0.8); Eosinophils % 0.7 %; Hematocrit 34.9 % (36-47); Lymphocytes % 35.6 %; Mean Corpuscular HGB Conc 34.1 g/dL (30-55); Mean Corpuscular Hemoglobin 29.5 pg (27-33); Mean Corpuscular Volume 86.4 fl (85-98); Mean Platelet Volume 10.1 fL (7.4-10.4); Monocytes # 0.4 10^3/uL (0.2-0.9); Monocytes % 4.1 %; Neutrophils # 4.95 10^3/uL (1.8-7.7); Neutrophils % 57.9 %; Nucleated Red Blood Cells % 0 %; Platelet Count 191 10^3/cmm (157-399); Red Blood Count 4.04 10^6/uL (3.85-5.65); Red Cell Distribution Width 12.6 % (12.1-15.1); White Blood Count 8.54 10^3/uL (3.29-11.43)
--- NOTE | 2024-04-25 09:50 | PM.OBGYHP ---
Providers/Chief Complaint Admitting Physician: Axel Leiva MD Primary HEALTHCARE RECEPTIONIST: Skyler Corrigan MD Primary Care Provider: Lana Stewart APN Chief Complaint: INDUCTION HPI HEALTHCARE RECEPTIONIST History of Present Illness Demetria Christianson is a 28 year old female A2 EDC May 02, 2024 At 39 w 0 d No complications + active movements Admitted for induction of labor Present Details : 4 Para: 1 Labs Rubella: Immune RPR: Negative GBS: Negative Medications/Allergies Home Medications ?Medication ?Instructions ?Recorded ?Confirmed ?Last Taken ?Type No Known Home Medications 04/19/24 04/26/24 Unknown History Allergies Allergy/AdvReac Type Severity Reaction Status Date / Time No Known Allergies Allergy Verified 04/19/24 09:19 PFSH HEALTHCARE RECEPTIONIST PFSH: Medical History Polyarthralgia Elevated antinuclear antibody (KIMMIE) level Seasonal allergies Pilonidal cyst (~11/2012) removal No pertinent past medical history neghx: htn,dm,thyroid,dvt/pe PCP: Lana Stewart [place] Surgical History Hx of wisdom tooth extraction (~03/2018) Family History Grandfather Colon cancer Maternal--dx age 50-60's Mother Heart disease Hypertension Father Hypercholesteremia Brother Hypercholesteremia Denies family history of Ovarian cancer Diabetes Breast cancer Uterine cancer Thyroid disease Stroke Social History Smoking and tobacco/nicotine status: never used tobacco/nicotine History History History 4 Term 1 0 Miscarriages/Ectopic 2 Living Children 1 Care MURRAY Calculator Estimated Delivery Date Method Current WG Current Estimate 05/02/24 Ultrasound #1 39w 2d Other Estimates 04/05/24 LMP (Uncertain) 43w 1d Specific Issues/Plans UNKNOWN LMP-- 8wk sono dates the subchor bleed-- at 8 wks; repeat at 12wk HX PP HEMORRHAGE--immed after placenta; long induction LGA? - last baby 9#, was able to deliver vaginally Vitals/I&O/Wt Last Vital Signs Temp 99.0 F 04/26/24 10:57 Pulse 85 04/27/24 01:47 Resp 18 04/25/24 17:38 BP 119/70 04/27/24 01:47 Pulse Ox 98 04/25/24 22:36 O2 Del Method Room Air 04/25/24 09:15 04/26/24 04/26/24 04/27/24 14:59 22:59 06:59 Intake Total 1056.917 / 1056.917 150 / 8566.997 5498 / 2206.917 Output Total 800 / 800 2000 / 2800 400 / 3200 Balance 256.917 / 256.917 -1850 / -1593.083 600 / -993.083 Weight last 48 hrs Weight 233 lb Weight 233 lb Physical Exam Narrative: Weight 233 lbs; 5?6? VS normal General comfortable, awake, alert Lungs: clear Cor: RRR Abd: nontender. Clinical EFW 8.5 lbs; cephalic Cx: 3 cm / 75 / -2 Ext: normal External monitor: heart tracing good variability, + accelerations Urinary Catheter Management: Christianson: Cath Placed During This Visit: yes, but has since been removed by the nurse Reason for Continuing Indwelling Catheter: Decision to DC Catheter Urinary Catheter Date of Insertion: 04/25/24 Urinary Catheter Time of Insertion: 23:15 Date Urinary Catheter Removed: 04/26/24 Time Urinary Catheter Discontinued: 20:37 Data 04/25/24 09:20 Results Labs OB ([facility]): Obstetrics US 04/19/24 Blood Type A Positive 04/25/24 Antibody Screen Negative 04/25/24 Hct 34.9 % (36-47) L 04/25/24 Hgb 11.90 g/dL (11.27-16.99) 04/25/24 Rho(D) Type Rh positive 04/25/24 Plt Count 191 10^3/cmm (157-399) 04/25/24 Hep Bs Antigen Non-reactive (Nonreactive) 10/10/23 Hepatitis C Antibody Non-reactive (Nonreactive) 10/10/23 Rubella IgG Antibody 152.7 IU/mL (0.0-10.0) H 10/10/23 RPR Nonreactive (Nonreactive) 10/10/23 HIV 1&2 Ab & HIV 1 Ag Non-reactive (Non-Reactiv) 10/10/23 C.trachomatis RNA (TMA) Not detected (NOT DETECTED) 10/23/23 N.gonorrhoeae RNA (TMA) Not detected (NOT DETECTED) 10/23/23 T. vaginalis Amp RNA Not detected (NOT DETECTED) 10/23/23 Chlamydia/GC Comment See note 10/23/23 Cystic Fibrosis Screen Neg 14 out of 14 10/10/23 Glucose 1 Hr 50 gm 122 mg/dL (85-140) 01/12/24 Gest Glucose Tolerance 101 mg/dL (70-139) 01/27/23 Uric Acid 3.5 mg/dL (2.4-5.7) 04/09/23 Ser , Semi-Qnt 977830.00 mIU/mL 09/22/23 HCG, Qual Positive (Negative) H 09/19/23 Urine Opiates Screen Negative ng/mL (Negative) 10/10/23 Ur Barbiturates Screen Negative ng/mL (Negative) 10/10/23 Ur Phencyclidine Scrn Negative ng/mL (Negative) 10/10/23 Ur Amphetamines Screen Negative ng/mL (Negative) 10/10/23 U Benzodiazepines Scrn Negative ng/mL (Negative) 10/10/23 Urine Cocaine Screen Negative ng/mL (Negative) 10/10/23 U Marijuana (THC) Screen Negative ng/mL (Negative) 10/10/23 Micro Urine Specimen 10/10/23 Pap Smear Interpret See note 11/28/22 A&P Assessment and plan (1) Encounter for induction of labor: 39 w 0 d Admit for induction of labor Plan Cytotec 25 ug intravaginal Fetus reassuring GBS negative Labor management PDMP PDMP Reviewed: Not Reviewed Attestations Medical Necessity Statement*: patient at 39 w 0 d, admitted for induction of labor Coding Level of Care Code Acute Code for Chg Fwd Diagnoses Encounter for induction of labor Z34.90 Time Spent (min) 60
[2024-04-25] MEDS: miSOPROStol 100 mcg tablet 25 MCG VAGINAL (09:57)
--- NOTE | 2024-04-25 19:12 | P.ANESASSM_ITS ---
Pre-Anesthetic Assessment Height/Weight: Height 1.68 m Weight 105.687 kg Temp Pulse Resp BP O2 Del Method 98.1 F 76 18 135/78 Room Air 04/25/24 17:38 04/25/24 18:08 04/25/24 17:38 04/25/24 18:08 04/25/24 09:15 Preop Diagnosis: IUP Familial anesthetic complications: none Was Beta Sean taken within 24 hours: N/A Was Clonidine taken within 24 hours: N/A Last Intake: 13:00 Social No alcohol and No tobacco Exam alert and oriented x 3 Airway Submandibular: within normal limits Cervical ROM: within normal limits Mallampati: Class II Dentition: full History/ROS No significant history except as noted Musc/skel Scoliosis (has been told she has scoliosis.) Anesthetic Plan ASA status: 2 Anesthesia: Anesthesia Evaluation and Regional (specify below) Medications/Allergies Home Medications ?Medication ?Instructions ?Recorded ?Confirmed ?Last Taken ?Type No Known Home Medications 04/19/2403/28 Unknown History Allergies Allergy/AdvReac Type Severity Reaction Status Date / Time No Known Allergies Allergy Verified 04/19/24 09:19 [facility] Anesthesia Medical History Polyarthralgia Elevated antinuclear antibody (KIMMIE) level Seasonal allergies Pilonidal cyst (~11/2012) removal No pertinent past medical history neghx: htn,dm,thyroid,dvt/pe PCP: Lana Stewart [place] Surgical History Hx of wisdom tooth extraction (~03/2018) Family History Grandfather Colon cancer Maternal--dx age 50-60's Mother Heart disease Hypertension Father Hypercholesteremia Brother Hypercholesteremia Denies family history of Ovarian cancer Diabetes Breast cancer Uterine cancer Thyroid disease Stroke Social History Smoking and tobacco/nicotine status: never used tobacco/nicotine Female Reproductive History : 4 Data Anesthesia 04/25/24 09:20 Short CBC 04/25/24 Range/Units 09:20 WBC 8.54 (3.29-11.43) 10^3/uL Hgb 11.90 (11.27-16.99) g/dL Hct 34.9 L (36-47) % MCV 86.4 (85-98) fl Plt Count 191 (157-399) 10^3/cmm Neut % (Auto) 57.9 % Neut # (Auto) 4.95 (1.8-7.7) 10^3/uL Blood Bank 04/25/24 09:20 Blood Type A Positive Rho(D) Type Rh positive Antibody Screen Negative Cardiac Studies: 2 No Data to Display
[2024-04-25] MEDS: sodium chloride 0.9% 1,000 ML 999 ML IV (21:29)
[2024-04-25] MEDS: dextrose 5%-lactated ringers 1,000 ML 125 ML IV (22:33)
[2024-04-25] MEDS: ROPivacaine syringe 100 MG/50 ML SYRINGE 10 MG EPIDURAL (22:36)
--- NOTE | 2024-04-25 22:48 | P.ANES_ITS ---
Anesthesia Procedures Procedure/Date: 04/25/24 Epidural: Time Out Performed: Yes Consents Signed: Procedure Consent Consent: from patient Lumbar Level: L3-L4 Epidural position: sitting Epidural procedure: sterile prep of area, 1% lidocaine to numb the area, 18 g needle, negative for paresthesia passed, neg for paresthesia, test dose given, 1 .5% xylocaine 1:200k epi, 0.2% Ropivacaine bolus ml, placed PCEA, no systemic response, sterile dressing applied, L.U.D. no apparent complications and 0.2% Ropiavacaine @ mls/hr Additional Comments: Loss of resistance at 80 cm, catheter left at 14 cm to the skin. Ropivacaine 0.2% set at 10 mL/h
[2024-04-26] VITALS (98 sets, daily range): BP systolic 107–181; BP diastolic 55–92; PULSE 71–116; TEMP 36.9–37.2
[2024-04-26] MEDS: ROPivacaine syringe 100 MG/50 ML SYRINGE 10 MG EPIDURAL ×6 (01:53→21:06)
[2024-04-26] MEDS: dextrose 5%-lactated ringers 1,000 ML 125 ML IV ×3 (06:54→23:56)
[2024-04-26] MEDS: oxytocin 30 UNIT/500 ML BAG IV (07:20)
[2024-04-26] MEDS: acetaminophen 325 mg Tablet 650 MG PO ×2 (07:26→13:29)
[2024-04-26] MEDS: oxytocin 30 UNIT/500 ML BAG 600 UNIT IV (23:30)
--- NOTE | 2024-04-26 23:50 | PM.DELIVERY ---
Delivery Note: Date of delivery: April 26, 2024 Pre-delivery diagnoses: 39 w 0 d admitted for elective induction of labor Post-delivery diagnoses: 39 w 0 d admitted for elective induction of labor vacuum-assisted vaginal delivery Procedure: induction of labor vacuum-assisted vaginal delivery Op report anesthesia: Epidural Delivering Physician: Axel Leiva MD Estimated blood loss (mL): 400 Findings: Patient had been pushing x three hours + maternal exhaustion Cx: complete / + 2 station / head SALVATORE Consent obtained from patient for use of vacuum extractor Vacuum extractor applied Mild traction used through one uterine contraction Brought head to perineum Shoulders delivered easily + nuchal cord reduced Vigorous male infant Cord gases and blood obtained Normal placenta and cord No episiotomy / lacerations EBL: 400 cc No complications Pre-Delivery Course: normal labor course fetus reassuring throughout Delivery: vacuum-assisted vaginal delivery Post-Delivery Status: good History History History 4 Term 1 0 Miscarriages/Ectopic 2 Living Children 1 A&P Assessment and plan (1) Vaginal delivery: PDMP PDMP Reviewed: Not Reviewed Coding Level of Care Code Acute Code for Chg Fwd Diagnoses Vaginal delivery O80 Time Spent (min) 120
[2024-04-27] VITALS (19 sets, daily range): BP systolic 97–146; BP diastolic 53–96; PULSE 60–97; RESP 15–17; TEMP 36.6; O2SAT 96–98
[2024-04-27] MEDS: HYDROcodone-acetaminophen 5-325 mg Tablet PO ×2 (00:17→08:32)
[2024-04-27] MEDS: ondansetron 2 mg/ML SDV 2 mL 4 MG IVP (00:44)
[2024-04-27] MEDS: ketorolac 30 mg/mL INJ IVP (01:18)
[2024-04-27] MEDS: ibuprofen 800 mg tablet PO ×3 (08:32→20:07)
[2024-04-27] MEDS: PRENATAL VIT NO.130/IRON/FOLIC 1 EACH TABLET PO (08:32)
[2024-04-27] MEDS: docusate sodium 100 mg Capsule PO ×2 (08:32→20:07)
--- NOTE | 2024-04-27 10:45 | P.PN_ITS ---
SOFTWARE APPLICATIONS DEVELOPER Subjective 2 Subjective: Interval history: no c/o no headaches, dizziness, nausea, abdominal pain, bleeding normal lochia no perineal pain eating, voiding, ambulating well Labor: Station: +1 Amniotic Membrane Status: Intact Monitor Mode: External Contraction Pattern: Regular Vitals/I&O/Wt Last Vital Signs Temp 97.9 F 04/27/24 11:48 Pulse 74 04/28/24 14:25 Resp 15 04/28/24 04:00 BP 123/81 04/28/24 14:25 Pulse Ox 98 04/28/24 14:25 O2 Del Method Room Air 04/28/24 04:00 Physical Exam 2 Narrative: afebrile, VS normal comfortable, awake, alert Abd: soft, nontender. fundus firm Ext: no edema; nontender Urinary Catheter Management: Christianson: Cath Placed During This Visit: yes, but has since been removed by the nurse Reason for Continuing Indwelling Catheter: Decision to DC Catheter Urinary Catheter Date of Insertion: 04/25/24 Urinary Catheter Time of Insertion: 23:15 Date Urinary Catheter Removed: 04/26/24 Time Urinary Catheter Discontinued: 20:37 Data 04/27/24 11:40 A&P Assessment and plan (1) Vaginal delivery: PPD #1 VAVD doing well normal course continue care PDMP PDMP Reviewed: Not Reviewed Attestations 2 Medical Necessity Statement*: patient s/p vaginal delivery, for care Coding Level of Care Code Acute Code for Chg Fwd Diagnoses Vaginal delivery O80
--- NOTE | 2024-04-27 11:49 | ANE.PACU2 ---
Inpatient post-anesthesia follow up: Airway intact: Yes Vital signs: Temperature 97.9 F Pulse Rate 74 Respiratory Rate 15 Blood Pressure 123/81 Pulse Oximetry 98 Oxygen Delivery Me thod Room Air Oxygen Flow Rate Fraction of Inspir ed Oxygen Hydration adequate: Yes Nausea and vomiting: No Pain level: 1 Mental status: Baseline Epidural Start/End: Epidural Start Date: 04/25/24 Epidural Start Time: 22:27 Epidural End Date: 04/27/24 Epidural End Time: 02:15
[2024-04-27 11:55] LABS: Hematocrit 31.2 % (36-47); Mean Corpuscular HGB Conc 33.3 g/dL (30-55); Mean Corpuscular Hemoglobin 29.5 pg (27-33); Mean Corpuscular Volume 88.6 fl (85-98); Platelet Count 164 10^3/cmm (157-399); Red Blood Count 3.52 10^6/uL (3.85-5.65); Red Cell Distribution Width 13.1 % (12.1-15.1); White Blood Count 16.02 10^3/uL (3.29-11.43)
[2024-04-28 04:00] VITALS: BP 111/72; PULSE 83; RESP 15; O2SAT 98
[2024-04-28] MEDS: docusate sodium 100 mg Capsule PO (09:12)
[2024-04-28] MEDS: PRENATAL VIT NO.130/IRON/FOLIC 1 EACH TABLET PO (09:12)
[2024-04-28] MEDS: ibuprofen 800 mg tablet PO (09:12)
--- NOTE | 2024-04-28 13:50 | PM.OBGYDC ---
Discharge Providers [facility] Date of Admission: 04/25/24 09:40 Date of Discharge: 04/28/24 Attending Provider at Admission: Axel Leiva MD Attending Provider at Discharge: Axel Leiva MD Consults: none Primary Care Provider: Lana Stewart APN Diagnoses at Discharge Discharge Diagnosis (1) Vaginal delivery: Details from hospital stay: 28 y.o. A2 at 39 w 0 d admitted for induction of labor patient progressed to complete, +2 station fetus was reassuring throughout vacuum-assisted vaginal delivery was done no episiotomy or lacerations patient did well and was discharged to home on the second day Status: Inactive Reason for Visit Reason for Visit: INDUCTION Brief History: 28 y.o. A2 at 39 w 0 d admitted for induction of labor Hospital Course Hospital Course 28 y.o. A2 at 39 w 0 d admitted for induction of labor patient progressed to complete, +2 station fetus was reassuring throughout vacuum-assisted vaginal delivery was done no episiotomy or lacerations patient did well and was discharged to home on the second day Information Peripartum Data: Infant Delivery Method: Vaginal Laceration description: None Episiotomy description: None complications: none Physical Exam Narrative: afebrile, VS normal comfortable, awake, alert Lungs: clear Cor: RRR Abd: soft, nontender. fundus firm Ext: no edema; nontender Urinary Catheter Management: Christianson: Cath Placed During This Visit: yes, but has since been removed by the nurse Reason for Continuing Indwelling Catheter: Decision to DC Catheter Urinary Catheter Date of Insertion: 04/25/24 Urinary Catheter Time of Insertion: 23:15 Date Urinary Catheter Removed: 04/26/24 Time Urinary Catheter Discontinued: 20:37 History History History 4 Term 2 0 Miscarriages/Ectopic 2 Living Children 2 Discharge Data Studies Completed and Pending Laboratory Results WBC 16.02 10^3/uL (3.29-11.43) H 04/27/24 11:40 RBC 3.52 10^6/uL (3.85-5.65) L 04/27/24 11:40 Hgb 10.40 g/dL (11.27-16.99) L 04/27/24 11:40 Hct 31.2 % (36-47) L 04/27/24 11:40 MCV 88.6 fl (85-98) 04/27/24 11:40 MCH 29.5 pg (27-33) 04/27/24 11:40 MCHC 33.3 g/dL (30-55) 04/27/24 11:40 RDW 13.1 % (12.1-15.1) 04/27/24 11:40 Plt Count 164 10^3/cmm (157-399) 04/27/24 11:40 MPV 10.0 fL (7.4-10.4) 04/27/24 11:40 Neut % (Auto) 57.9 % 04/25/24 09:20 Lymph % (Auto) 35.6 % 04/25/24 09:20 Hettinger % (Auto) 4.1 % 04/25/24 09:20 Eos % (Auto) 0.7 % 04/25/24 09:20 Baso % (Auto) 0.4 % 04/25/24 09:20 Neut # (Auto) 4.95 10^3/uL (1.8-7.7) 04/25/24 09:20 Lymph # (Auto) 3.0 10^3/uL (0.8-4.8) 04/25/24 09:20 Hettinger # (Auto) 0.4 10^3/uL (0.2-0.9) 04/25/24 09:20 Eos # (Auto) 0.1 10^3/uL (0.0-0.8) 04/25/24 09:20 Baso # (Auto) 0.0 10^3/uL (0.0-0.1) 04/25/24 09:20 Nucleated RBC % (auto) 0 % 04/25/24 09:20 Nucleated RBCs # 0.0 /100WBC 04/25/24 09:20 Blood Type A Positive 04/25/24 09:20 Rho(D) Type Rh positive 04/25/24 09:20 Antibody Screen Negative 04/25/24 09:20 Procedures Performed induction of labor vacuum-assisted vaginal delivery Vitals Last Vital Signs Temp 97.9 F 04/27/24 11:48 Pulse 74 04/28/24 14:25 Resp 15 04/28/24 04:00 BP 123/81 04/28/24 14:25 Pulse Ox 98 04/28/24 14:25 O2 Del Method Room Air 04/28/24 04:00 Results Labs OB ([facility]): Obstetrics US 04/19/24 Blood Type A Positive 04/25/24 Antibody Screen Negative 04/25/24 Hct, (36-47) 31.2 % L 04/27/24 Hgb, (11.27-16.99) 10.40 g/dL L 04/27/24 Rho(D) Type Rh positive 04/25/24 Plt Count, (157-399) 164 10^3/cmm 04/27/24 Hep Bs Antigen, (Nonreactive) Non-reactive 10/10/23 Hepatitis C Antibody, (Nonreactive) Non-reactive 10/10/23 Rubella IgG Antibody, (0.0-10.0) 152.7 IU/mL H 10/10/23 RPR, (Nonreactive) Nonreactive 10/10/23 HIV 1&2 Ab & HIV 1 Ag, (Non-Reactiv) Non-reactive 10/10/23 C.trachomatis RNA (TMA), (NOT DETECTED) Not detected 10/23/23 N.gonorrhoeae RNA (TMA), (NOT DETECTED) Not detected 10/23/23 T. vaginalis Amp RNA, (NOT DETECTED) Not detected 10/23/23 Chlamydia/GC Comment See note 10/23/23 Cystic Fibrosis Screen Neg 14 out of 14 10/10/23 Glucose 1 Hr 50 gm, (85-140) 122 mg/dL 01/12/24 Gest Glucose Tolerance, (70-139) 101 mg/dL 01/27/23 Uric Acid, (2.4-5.7) 3.5 mg/dL 04/09/23 Ser , Semi-Qnt 520107.00 mIU/mL 09/22/23 HCG, Qual, (Negative) Positive H 09/19/23 Urine Opiates Screen, (Negative) Negative ng/mL 10/10/23 Ur Barbiturates Screen, (Negative) Negative ng/mL 10/10/23 Ur Phencyclidine Scrn, (Negative) Negative ng/mL 10/10/23 Ur Amphetamines Screen, (Negative) Negative ng/mL 10/10/23 U Benzodiazepines Scrn, (Negative) Negative ng/mL 10/10/23 Urine Cocaine Screen, (Negative) Negative ng/mL 10/10/23 U Marijuana (THC) Screen, (Negative) Negative ng/mL 10/10/23 Micro Urine Specimen 10/10/23 Pap Smear Interpret See note 06/09/24 Discharge Plan Discharge Patient Disposition: Home Condition: Stable Prescriptions: No Action norethindrone (contraceptive) [Jayde] 0.35 mg tablet 0.35 mg PO DAILY Qty: 84 3RF M-Jo-Ann Plus 27 mg iron- 1 mg tablet See Rx Instructions .ROUTE .COMPLEX Qty: 90 1RF Dose Instruction: Take 1 tablet by mouth once daily Rx Instructions: Take 1 tablet by mouth once daily Discharge Orders: Discharge Order (Routine); Ordered 04/28/24 Ordered By: Axel Leiva Referrals: Barbie Merchant NP [Nurse Practitioner, [facility]] - 06/09/24 10:45 am Discharge Diet: Usual diet Discharge Activity: Increase activity as tolerated Patient Instructions: Depression (DC), Opioid Safety (DC), Preeclampsia and Eclampsia After Delivery (GEN), Hemorrhage (DC), OB Discharge Report, OB Food/Drug Interaction Guide, OB Care at Home, Opioid Safety, OB Vaginal Deliveries, Abnormal Bleeding Discharge Attestations [employer] Time Spent in Discharge Care*: less than 30 min Coding Level of Care Code Acute Code for Chg Fwd Diagnoses Vaginal delivery O80
[2024-04-28 14:25] VITALS: BP 123/81; PULSE 74; O2SAT 98
== END 2024-04-28 14:25 | disposition home or self-care (01) | DRG 807 ==
LOC: OPOB 09:40 → OBGYN 09:40
PROVIDERS: Absent Provider Obstetrics & Gynecology; Admitting Provider Obstetrics & Gynecology; Family Provider Obstetrics & Gynecology; PCP Nurse Practitioner Family; Visit Provider Obstetrics & Gynecology
DX: O75.81 Maternal exhaustion complicating labor and delivery (principal); Z37.0 Single live birth; O69.81X0 Labor and delivery complicated by cord around neck, without compression, not applicable or unspecified; Z3A.39 39 weeks gestation of pregnancy
CPT/HCPCS: 36415; 51702; 59025; 59409; 85025; 85027; 86850; 86900; 96374; 99211; J1885; J2405; J2590; J2795; J7030; J7121; J9999

== ENCOUNTER → 2024-06-09 12:19 | Outpatient (BNVA) | payer BC, SELFPAY | PROVIDERS: Family Provider Obstetrics & Gynecology; PCP Nurse Practitioner Family; Visit Provider Nurse Practitioner Women's Health | DX: Z12.4 Encounter for screening for malignant neoplasm of cervix (principal) | CPT/HCPCS: 87624 ==

== ENCOUNTER → 2024-09-06 10:45 | Outpatient (BNVA) | payer BC, SELFPAY | PROVIDERS: Family Provider Obstetrics & Gynecology; PCP Nurse Practitioner Family; Visit Provider Nurse Practitioner Women's Health | DX: R30.0 Dysuria (principal) | CPT/HCPCS: 81000; 87077; 87086; 87184 ==